=== PATIENT | male | born 2000 | race Caucasian/White ===

== ENCOUNTER 2021-06-30 11:24 | Emergency (ER) | payer OTHER, SELFPAY ==
--- NOTE | ~2021-06-30 | CT_ITS ---
EXAMINATION: CT brain wo con INDICATION: Head injury COMPARISON: None TECHNIQUE: Standard unenhanced head CT. The dose-length product (DLP) was 681.00 mGy-cm. The mA was a djusted according to patient size. Iterative reconstruction technique was employed. FINDINGS: There is no intracranial hemorrhage, acute infarction, or abnormal mass lesion. The ventric les are normal. There is no abnormal mass effect or midline shift. The bro-white matter differentiat ion is normal. The basal cisterns are patent. The orbits are normal. The paranasal sinuses, mastoids and calvarium are normal. IMPRESSION: 1. No acute intracranial abnormality. Reviewed, dictated and finalized at location A.
--- NOTE | ~2021-06-30 | CT_ITS ---
EXAMINATION: CT facial bones wo con DATE: 06/30/2021 12:07 INDICATION: Right facial injury TECHNIQUE: Computed tomography (CT) of the facial bones and maxillofacial region was performed withou t intravenous contrast. The dose-length product (DLP) was 281.08 mGy-cm. Automated exposure control a nd iterative reconstruction technique were employed. COMPARISON: None. FINDINGS: There is no facial bone fracture. There is mild right facial soft tissue swelling. Polyps o r mucous retention cysts are noted in the maxillary sinuses. IMPRESSION: 1. No facial bone fracture identified. Reviewed, dictated and finalized at location A.
[2021-06-30 11:26] VITALS: BP 158/88; PULSE 96; RESP 18; TEMP 36.3; O2SAT 98
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
== END 2021-06-30 12:39 | disposition home or self-care (01) ==
PROVIDERS: Emergency Provider Emergency Medicine; PCP Family Medicine
DX: S09.90XA Unspecified injury of head, initial encounter (principal); W51.XXXA Accidental striking against or bumped into by another person, initial encounter; Y93.83 Activity, rough housing and horseplay
CPT/HCPCS: 70450; 70486; 99284

== ENCOUNTER 2021-08-24 23:28 | Emergency (ER) | payer OTHER, SELFPAY ==
[2021-08-24 23:34] VITALS: BP 151/84; PULSE 107; RESP 20; TEMP 36.2; O2SAT 99
--- NOTE | 2021-08-25 00:01 | ED.GENADULT ---
HPI - General Adult General Chief complaint: Unspecified Stated complaint: Abscess on tailbone Time Seen by Provider: 08/24/21 23:38 History of Present Illness HPI narrative: Patient 20-year-old gentleman who presents the emergency department with chief complaint of pain in the tailbone area. Patient reports he does little bit of swelling in that area and noticed it was tender to palpation. Patient reports he was concerned that he had an abscess in the tailbone area. Patient reports has no history of diabetes denies fever denies chills denies purulent drainage from the area. Related Data Allergies Allergy/AdvReac Type Severity Reaction Status Date / Time Penicillins AdvReac Unknown Verified 08/24/21 23:47 Review of Systems Review of Systems: A 10 system review of systems was completed on the patient and is negative except for what is stated in the HPI. Nursing and ancillary documentation was reviewed. [facility] Past Medical History Medical History No active medical problems Social History Social History Substance use: never Exam Narrative: GENERAL: Well-appearing, well-nourished, and in no acute distress. HEAD: Normocephalic, atraumatic. EYES: PERRLA and EOMI. ENT: Nares clear, no rhinorrhea or epistaxis. Mucous membranes moist. NECK: Supple. CHEST: Clear to auscultation. No respiratory distress. HEART: Regular rate and rhythm. No murmur heard. Normal peripheral pulses. ABDOMEN: Soft, nontender, nondistended, normal active bowel sounds. : The gluteal fold there is a slight area of erythema there is no fluctuance there is no pointing there is no appreciable drainable abscess. EXTREMITIES: Normal range of motion. No edema. SKIN: Warm, dry, no rash. NEURO: No focal deficits. Alert and oriented x3. PSYCH: Normal mood and affect. Course Vital Signs Vital signs: Vital Signs Temperature 36.2 C L 08/24/21 23:34 Pulse Rate 107 H 08/24/21 23:34 Respiratory Rate 20 08/24/21 23:34 Blood Pressure 151/84 H 08/24/21 23:34 Pulse Oximetry 99 08/24/21 23:34 Temperature 36.2 C L 08/24/21 23:34 Pulse Rate 107 H 08/24/21 23:34 Respiratory Rate 20 08/24/21 23:34 Blood Pressure 151/84 H 08/24/21 23:34 Pulse Oximetry 99 08/24/21 23:34 Medical Decision Making Vital Signs Vital Signs: Vital Signs Temperature 36.2 C L 08/24/21 23:34 Pulse Rate 107 H 08/24/21 23:34 Respiratory Rate 20 08/24/21 23:34 Blood Pressure 151/84 H 08/24/21 23:34 Pulse Oximetry 99 08/24/21 23:34 Temperature 36.2 C L 08/24/21 23:34 Pulse Rate 107 H 08/24/21 23:34 Respiratory Rate 20 08/24/21 23:34 Blood Pressure 151/84 H 08/24/21 23:34 Pulse Oximetry 99 08/24/21 23:34 Discharge Plan Discharge Clinical Impression: Pilonidal cyst Patient Disposition: Home, Self-Care Condition: Stable Instructions: Antibiotic Form, Pilonidal Cyst (ED), Sitz Bath (DC) Prescriptions: New clindamycin HCl 300 mg capsule 300 mg PO Q6H 10 Days Qty: 40 RF: 0 Follow-up/Referrals: PHYSICIAN,RAIL CAR MECHANIC [Primary Care Provider] - Alistair Regalado MD [Physician] - Time of Disposition: 00:08
[2021-08-25 00:04] LABS: Glucose Point of Care 104 mg/dl (65-105)
[2021-08-25] MEDS: CLINDAMYCIN HCL 150 MG CAP 300 MG PO (00:17)
[2021-08-25 00:20] VITALS: BP 157/81; PULSE 91; RESP 18; O2SAT 95
== END 2021-08-25 00:25 | disposition home or self-care (01) ==
PROVIDERS: Emergency Provider Emergency Medicine
DX: L05.91 Pilonidal cyst without abscess (principal)
CPT/HCPCS: 82948; 99283; A9270

== ENCOUNTER 2021-11-29 16:15 | Emergency (ER) | payer OTHER, SELFPAY ==
[2021-11-29 16:18] VITALS: BP 152/70; PULSE 67; RESP 16; TEMP 36.8; O2SAT 100
--- NOTE | 2021-11-29 16:27 | PC.NURSE ---
Patient teeth look darker on left upper and lower. Patient states, It feels like a cavity but it hurts more in my gums
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
[2021-11-29] MEDS: CLINDAMYCIN HCL 150 MG CAP 300 MG PO (16:56)
[2021-11-29] MEDS: ACETAMINOPHEN/CODEINE (*CRX) 300/30 MG TABLET 1 TAB PO (16:56)
== END 2021-11-29 17:43 | disposition home or self-care (01) ==
LOC: ANHED 17:04
PROVIDERS: Emergency Provider Nurse Practitioner Adult Health
DX: K08.89 Other specified disorders of teeth and supporting structures (principal)
CPT/HCPCS: 99283; A9270

== ENCOUNTER 2022-01-04 21:28 | Emergency (ER) | payer OTHER, SELFPAY ==
--- NOTE | ~2022-01-04 | CT_ITS ---
EXAMINATION: CT brain wo con EXAM DATE: 01/04/2022 23:53 INDICATION: Seizure, resulting in fall. Head injury, laceration above left eyebrow. TECHNIQUE: Spiral CT of the head was performed without contrast. Axial, coronal and sagittal images were reviewed. The dose-length product (DLP) for this examination was 681.00 mGy-cm. The exposure w as tailored according to patient size, and iterative reconstruction (ASIR) was used as additional dos e reduction technique. Comparison is made to prior examination from 06/30/2020. FINDINGS: There is no acute intraparenchymal hemorrhage. No evidence of intraparenchymal brain mass lesion. No evidence of acute infarction. There is no mass effect or midline shift. The ventricles are normal in size. There are no extra-axial collections. There are no acute calvarial fractures. T he orbits are unremarkable. Soft tissue is unremarkable. The visualized sinuses and mastoid air vidal ls are well aerated. IMPRESSION: 1. Unremarkable head CT examination. Reviewed, dictated and finalized at location G.
[2022-01-04 21:38] VITALS: BP 123/71; PULSE 101; RESP 18; TEMP 36.6; O2SAT 99
--- NOTE | 2022-01-04 23:40 | ED.SEIZURE ---
HPI - Seizure General Chief Complaint: Seizure Stated Complaint: seizure Time Seen by Provider: 01/04/22 23:28 Source: patient Mode of arrival: EMS Limitations: no limitations History of Present Illness HPI Narrative: Patient is a 21-year-old male complaining of a seizure, single episode, lasted for approximately 10 seconds described as shaking all over but he was able to get up after and walk to the kitchen according to . Patient states that he had a similar episode 3 months ago when he smoked marijuana. Patient admits to smoking marijuana tonight. Patient denies any symptoms at this time. Denies any headache, dizziness, speech or visual disturbance, focal weakness or numbness, chest pain, shortness of breath, abdominal pain, nausea, vomiting, fever or chills. Related Data Allergies Allergy/AdvReac Type Severity Reaction Status Date / Time Penicillins AdvReac Unknown Verified 01/04/22 21:42 Review of Systems Review of Systems: All systems reviewed & are unremarkable except as noted in HPI and below Constitutional: Constitutional: Denies body ache(s), Denies chills, Denies excessive sweating, Denies fatigue, Denies fever(s), Denies headache(s), Denies lethargy, Denies malaise, Denies weakness and Denies weight loss Eyes: Eyes: Denies blurry vision, Denies change in vision and Denies loss of vision ENT: Denies dizziness, Denies ear discharge, Denies headache(s), Denies lip swelling, Denies epistaxis, Denies nasal congestion, Denies neck pain, Denies throat swelling and Denies tongue swelling Cardiovascular: Cardiovascular: Denies chest pain, Denies chest pain at rest, Denies chest pain with activity, Denies diaphoresis, Denies rapid heart rate, Denies edema, Denies irregular heart rhythm, Denies lightheadedness, Denies palpitations, Denies dyspnea and Denies dyspnea on exertion Respiratory: Respiratory: Denies chest congestion, Denies cough, Denies hemoptysis, Denies dyspnea and Denies dyspnea on exertion Gastrointestinal: Gastrointestinal: Denies abdominal pain, Denies melena, Denies hematochezia, Denies diarrhea, Denies nausea, Denies vomiting and Denies hematemesis Musculoskeletal: Musculoskeletal: Denies abnormal gait, Denies deformity, Denies joint swelling, Denies limited range of motion, Denies neck pain and Denies numbness Neurologic: Denies Abnormal speech present, Denies abnormal gait, Denies confusion, Denies dizziness, Denies headache(s), Denies focal weakness, Denies loss of vision, Denies numbness, Denies Other visual disturbances, Denies Sensory deficit (Neuro) and Denies weakness Psychiatric: Psychiatric: Denies confusion, Denies depression, Denies auditory hallucinations, Denies homicidal ideation and Denies suicidal ideation Endocrine: Endocrine: Denies cold intolerance, Denies excessive sweating, Denies fatigue, Denies heat intolerance and Denies palpitations Hematologic/Lymphatic: Hematologic/Lymphatic: Denies easy bleeding and Denies easy bruising Allergic/Immunologic: Allergic/Immunologic: Denies lip swelling, Denies throat swelling and Denies tongue swelling PMFSH Past Medical History Medical History No active medical problems Social History Social History Substance use: never Comments Social history: Positive for smoker, occasional EtOH use, positive for marijuana use Exam Const: General: cooperative, healthy appearing, comfortable, no acute distress, well developed, alert and awake; No confusion Orientation/consciousness: oriented to person, oriented to place, oriented to time, patient oriented x3 and No confusion Limitations: no limitations HENMT: Head: normal to inspection, normocephalic and atraumatic Ears: hearing grossly normal bilaterally, TM normal on the right and TM normal on the left General nose exam: Normal external nose present, Normal nares present and No nasal disc
[2022-01-05 00:16] LABS: Basophils Percent Auto 0.6 % (0.2-1.2); Eosinophils Absolute Auto 0.2 K/mm3 (0-0.3); Eosinophils Percent Auto 2.3 % (0-4.4); Hematocrit 43.9 % (42.0-52.0); Hemoglobin 14.7 g/dL (14.0-18.0); Immature Granulocyte Absolute 0.02 K/mm3 (0.00-0.031); Immature Granulocyte Percent A 0.3 % (0-0.5); Lymphocytes Absolute Auto 2.42 K/mm3 (0.9-3.2); Lymphocytes Percent Auto 34.2 % (18.3-44.2); Mean Corpuscular HGB Conc 33.5 g/dl (32-36); Mean Corpuscular Volume 89.6 fl (80-100); Mean Platelet Volume 10.6 fl (7.4-10.4); Monocytes Absolute Auto 0.7 K/mm3 (0.1-0.6); Monocytes Percent Auto 10.3 % (2.6-8.5); Neutrophils Absolute Auto 3.7 K/mm3 (1.3-6.7); Neutrophils Percent Auto 52.3 % (45.5-73.1); Platelet Count Result 265 k/mm3 (150-375); Red Cell Distribution Width 13.2 % (11.5-14.5); White Blood Count 7.1 K/mm3 (4.5-10.0)
--- NOTE | 2022-01-05 00:25 | ECG_ITS ---
Measurements Intervals Coram Rate: 67 P: 42 ND: 142 QRS: 73 QRSD: 102 T: 49 QT: 405 QTc: 428 Interpretive Statements SINUS RHYTHM NORMAL ECG NO PREVIOUS ECG AVAILABLE FOR COMPARISON Electronically Signed On 01-07-2022 7:37:06 CDT by Jorge Lawrence M.D.
[2022-01-05 00:28] LABS: Alanine Aminotransferase 38 U/L (4-50); Alkaline Phosphatase 85 U/L (38-126); Anion Gap 9 mmol/L (8-16); Aspartate Amino Transferase 41 U/L (17-59); Bilirubin,Total 0.4 mg/dL (0.2-1.3); Blood Urea Nitrogen 21 mg/dL (9-20); Calcium 9.3 mg/dL (8.4-10.2); Carbon Dioxide 30 mmol/L (22-30); Chloride 102 mmol/L (98-107); Estimated CRCL calculation 129 ml/min; Estimated Glomerular Filt Rate > 60; Glucose 97 mg/dL (65-110); Potassium 3.9 mmol/L (3.4-5.0); Sodium 141 mmol/L (137-145)
[2022-01-05 00:34] VITALS: BP 140/64; PULSE 78; RESP 20; O2SAT 96
[2022-01-05] MEDS: LACTATED RINGERS 1,000 ML 999 ML IV CONT (00:39)
[2022-01-05 00:48] LABS: Troponin I 0.048 ng/mL (0.000-0.034)
[2022-01-05 01:55] VITALS: BP 136/73; PULSE 81; RESP 18; O2SAT 98
[2022-01-05 02:26] LABS: Troponin I 0.047 ng/mL (0.000-0.034)
[2022-01-05 03:00] VITALS: BP 136/66; PULSE 67; RESP 16; O2SAT 97
== END 2022-01-05 03:02 | disposition home or self-care (01) ==
PROVIDERS: Emergency Provider Emergency Medicine
DX: R56.9 Unspecified convulsions (principal); R79.89 Other specified abnormal findings of blood chemistry
CPT/HCPCS: 36415; 70450; 80053; 84484; 85025; 93005; 96360; 96361; 99284; J7120

== ENCOUNTER 2022-10-27 01:28 | Emergency (ER) | payer OTHER, SELFPAY ==
[2022-10-27] VITALS (11 sets, daily range): BP systolic 117–152; BP diastolic 66–86; PULSE 85–106; RESP 14–19; TEMP 36.6; O2SAT 95–98
--- NOTE | ~2022-10-27 | CT_ITS ---
EXAMINATION: CT brain wo con, CT facial bones wo con DATE: 10/27/2022 02:26 INDICATION: Seizure presenting with ground-level fall resulting in facial injury with laceration abov e left eyebrow. TECHNIQUE: 1. Computed tomography (CT) of the head was performed without intravenous contrast. Sagittal and kiel nal reconstructions were obtained. The mA was adjusted according to patient size. Iterative reconstru ction technique was employed. The dose-length product was 605.33 mGy-cm. 2. CT of the facial bones and maxillofacial region was performed without intravenous contrast. Sagitt al and coronal reconstructions were obtained. Automated exposure control and iterative reconstruction technique were employed. The dose-length product was 638.93 mGy-cm. COMPARISON: Head CT dated 01/04/2022 FINDINGS: Head CT: No calvarial fracture. No acute intracranial hemorrhage, acute infarction or abnormal extra axial flu id collection. Ventricles are normal and symmetric. No mass/mass effect. Maxillofacial CT: Small left supraorbital scalp hematoma. No acute maxillofacial fractures. Unchanged mild rightward de viation of the nasal bones and mild leftward bowing of the nasal septum also which could be developme ntal or sequela of old trauma. Small left-sided spike along the nasal septum. Orbits are normal. Unch anged small mucous retention cysts at the left and right maxillary sinuses. Mastoid air cells and mid dle ear cavities are clear. IMPRESSION: 1. Normal brain. No acute intracranial process. 2. No acute calvarial or maxillofacial fractures. Reviewed, dictated and finalized at location A. [employer] MANAGER IMPRESSION: 1. Normal brain. No acute intracranial process. 2. No acute calvarial or maxillofacial fractures.
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
[2022-10-27] MEDS: oxyCODONE/ACETAMINOPHEN (*CRX) 5-325 MG TABLET 1 TABLET PO (01:55)
[2022-10-27] MEDS: TETANUS,DIPHTHERIA,AC PERTUSSIS ADULT (0.5 ML) BOOSTRIX IM (01:55)
== END 2022-10-27 04:18 | disposition home or self-care (01) ==
PROVIDERS: Emergency Provider Preventive Medicine Aerospace Medicine
DX: S00.03XA Contusion of scalp, initial encounter (principal); S05.12XA Contusion of eyeball and orbital tissues, left eye, initial encounter; S00.33XA Contusion of nose, initial encounter; Z23 Encounter for immunization; Y04.2XXA Assault by strike against or bumped into by another person, initial encounter
CPT/HCPCS: 70450; 70486; 90471; 90715; 99284; A9270

== ENCOUNTER 2023-02-19 11:38 | Emergency (ER) | payer OTHER, SELFPAY ==
--- NOTE | ~2023-02-19 | CT_ITS ---
CT of the Abdomen and Pelvis: Indication: Abdominal pain, hematochezia Technique: 2.5 mm axial scans were obtained through the abdomen and pelvis following intravenous adm inistration of 100 cc of Omnipaque 350. Dose reduction technique was used on this scan by utilizing a utomated exposure control and iterative reconstruction technique. The dose-length product (DLP) was 1 021.75 mGy-cm. Findings: Scans through the lung bases are unremarkable. The liver, spleen, pancreas, gallbladder, adrenals and kidneys are within normal limits. No evidence of aortic aneurysm. No bowel obstruction or bowel wall thickening. There is no evidence to suggest acute appendicitis. Sh otty right lower quadrant lymph nodes are present. Images through the pelvis were performed. Urinary bladder unremarkable. Prostate gland and seminal ve sicles are unremarkable. Impression: Shotty right lower quadrant lymph nodes raises the possibility of mesenteric adenitis. No other significant findings. Reviewed, dictated and finalized at [facility]. Impression: Shotty right lower quadrant lymph nodes raises the possibility of mesenteric ad enitis. No other significant findings.
[2023-02-19 11:41] VITALS: BP 135/71; PULSE 77; RESP 18; TEMP 37; O2SAT 100
[2023-02-19 11:59] LABS: Basophils Percent Auto 0.5 % (0.2-1.2); Eosinophils Percent Auto 0.5 % (0-4.4); Hematocrit 44.6 % (42.0-52.0); Hemoglobin 14.9 g/dL (14.0-18.0); Immature Granulocyte Absolute 0.02 K/mm3 (0.00-0.031); Immature Granulocyte Percent A 0.3 % (0-0.5); Lymphocytes Absolute Auto 1.59 K/mm3 (0.9-3.2); Lymphocytes Percent Auto 26.9 % (18.3-44.2); Mean Corpuscular HGB Conc 33.4 g/dl (32-36); Mean Corpuscular Hemoglobin 29.7 pg (26-34); Mean Platelet Volume 10.7 fl (7.4-10.4); Monocytes Absolute Auto 0.4 K/mm3 (0.1-0.6); Monocytes Percent Auto 6.6 % (2.6-8.5); Neutrophils Absolute Auto 3.9 K/mm3 (1.3-6.7); Neutrophils Percent Auto 65.2 % (45.5-73.1); Platelet Count Result 250 k/mm3 (150-375); Red Blood Count 5.01 M/mm3 (4.6-6.20); Red Cell Distribution Width 13.2 % (11.5-14.5); White Blood Count 5.9 K/mm3 (4.5-10.0)
[2023-02-19 12:00] LABS: Appearance Urine Clear (Clear); Bilirubin Urine Negative (Negative); Blood Urine Negative (Negative); Color Urine Yellow (Yellow); Glucose Urine UA Negative (Negative); Ketones Urine Negative (Negative); Leukocyte Esterase Ur Negative LEU/UL (Negative); Nitrate Urine Negative (Negative); Protein Urine Negative (Negative); Urobilinogen Urine 0.2 mg/dL (<2.0)
[2023-02-19 12:12] LABS: Add Urine Microscopic? NO
[2023-02-19 12:15] LABS: Alanine Aminotransferase 25 U/L (6-50); Albumin Level 4.9 g/dL (3.5-5.1); Alkaline Phosphatase 66 U/L (38-126); Anion Gap 7 mmol/L (8-16); Aspartate Amino Transferase 25 U/L (17-59); Bilirubin,Total 0.5 mg/dL (0.2-1.3); Blood Urea Nitrogen 16 mg/dL (9-20); Calcium 9.1 mg/dL (8.4-10.2); Carbon Dioxide 28 mmol/L (22-30); Chloride 105 mmol/L (98-107); Estimated CRCL calculation 145 ml/min; Estimated Glomerular Filt Rate > 60; Glucose 98 mg/dL (65-110); Lipase 383 U/L (23-300); Potassium 4.6 mmol/L (3.4-5.0); Sodium 140 mmol/L (137-145)
--- NOTE | 2023-02-19 12:40 | ED.ABDPAIN ---
HPI - Abdominal Pain General Chief Complaint: Abdominal Pain Stated Complaint: blood in stool, weight loss Time Seen by Provider: 02/19/23 12:07 History of Present Illness HPI narrative: Patient is a 22-year-old male presenting with rectal bleeding. Patient states that for the last several months he has had intermittent abdominal cramping. States that he alternates between diarrhea and constipation. States that he sometimes does have black stools which has been occurring for the last year. States that earlier today he had a large loose bowel movement with bright red blood. States that he feels nauseous but has not vomited. No fevers or chills, chest pain, shortness of breath, rashes, dysuria, hematuria. Related Data Allergies Allergy/AdvReac Type Severity Reaction Status Date / Time Penicillins AdvReac Unknown Verified 02/19/23 11:44 Review of Systems Review of Systems: All systems reviewed & are unremarkable except as noted in HPI and below PMFSH Past Medical History Medical History No active medical problems Social History Social History Substance use: never Exam Narrative: GENERAL: Well-appearing, well-nourished, and in no acute distress. HEAD: Normocephalic, atraumatic. EYES: PERRLA and EOMI. ENT: Nares clear, no rhinorrhea or epistaxis. Mucous membranes moist. NECK: Supple. CHEST: Clear to auscultation. No respiratory distress. HEART: Regular rate and rhythm. ABDOMEN: Soft, mild diffuse tenderness, no guarding or rebound EXTREMITIES: Normal range of motion. No edema. SKIN: Warm, dry, no rash. NEURO: No focal deficits. Alert and oriented x3. PSYCH: Normal mood and affect. Course Vital Signs Vital signs: Vital Signs Temperature 98.6 F 02/19/23 11:41 Pulse Rate 77 02/19/23 11:41 Respiratory Rate 18 02/19/23 11:41 Blood Pressure 135/71 02/19/23 11:41 Pulse Oximetry 100 02/19/23 11:41 Oxygen Delivery Room Air 02/19/23 11:41 Temperature 98.6 F 02/19/23 11:41 Pulse Rate 77 02/19/23 11:41 Respiratory Rate 18 02/19/23 11:41 Blood Pressure 135/71 02/19/23 11:41 Pulse Oximetry 100 02/19/23 11:41 Oxygen Delivery Room Air 02/19/23 11:41 MDM - Abdominal Pain MDM Narrative Medical decision making narrative: Patient is a 22-year-old male presenting with abdominal cramping and bloody diarrhea. Vitals within normal limits. Exam remarkable for the above. Blood work is unremarkable. Hemoglobin is stable. Inflammatory markers are unremarkable. UA is unremarkable. CT abdomen pelvis shows possibility of mesenteric adenitis but no other acute abnormalities. Appendix appears normal. Rectal exam reveals light brown stool that is guaiac negative. No obvious hemorrhoids or fissures. On reevaluation, the patient is sitting comfortably. He denies current complaints. He denies any further rectal bleeding. Feel the patient is safe for outpatient management. Possible he had a bout of gastroenteritis causing mesenteric adenitis. Advised that he follow-up closely with gastroenterology and primary care. We will provide numbers for both. Appropriate return precautions given. Patient voiced understanding and is agreeable with plan. Discharged in stable condition. Differential Diagnosis Differential diagnosis: Likely abdominal pain, acute appendicitis, constipation, diverticulitis, gastroenteritis and other Medical Records Attestation: I reviewed the patient's medical records. Lab Data Attestation: I reviewed the patient's lab results. 02/19/23 11:47 02/19/23 11:47 Labs: Lab Results 02/19/23 Range/Units 11:47 WBC 5.9 (4.5-10.0) K/mm3 RBC 5.01 (4.6-6.20) M/mm3 Hgb 14.9 (14.0-18.0) g/dL Hct 44.6 (42.0-52.0) % MCV 89.0 (80-100) fl MCH 29.7 (26-34) pg MCHC 33.4 (32-36) g/dl RDW 13.2 (11
[2023-02-19 13:17] LABS: CRP < 0.5 mg/dL (<1.0)
[2023-02-19 13:20] LABS: Erythrocyte Sedimentation Rate 1 mm/hr (0-20)
== END 2023-02-19 14:17 | disposition home or self-care (01) ==
PROVIDERS: Emergency Medicine; Emergency Provider Emergency Medicine
DX: K92.1 Melena (principal); R10.9 Unspecified abdominal pain; R93.5 Abnormal findings on diagnostic imaging of other abdominal regions, including retroperitoneum
CPT/HCPCS: 36415; 74177; 80053; 81003; 83690; 85025; 85652; 86140; 99284; Q9967

== ENCOUNTER 2024-05-25 08:50 | Emergency (ER) | payer SELFPAY ==
[2024-05-25 08:53] VITALS: BP 155/84; PULSE 72; RESP 18; TEMP 36.5; O2SAT 99
--- NOTE | 2024-05-25 09:00 | ED.GIBLEED ---
HPI - GI Bleed General Chief complaint: GI Bleed Stated complaint: GI bleed Time Seen by Provider: 05/25/24 09:00 Source: patient Mode of arrival: ambulatory History of Present Illness HPI Narrative: 23 YEARS OLD WHITE MALE CAME WITH INTERMITTENT RECTAL BLEED FOR THE LAST 3-4 DAYS, FRESH RED BRIGHT BLOOD, WITH BOWEL MOVEMENT, DENIES ANY ANAL PAIN OR DISCOMFORT. PATIENT HAD SIMILAR SYMPTOMS OVER 1 YEAR AGO WITHOUT SPECIFIC DIAGNOSIS NEVER BEEN TO A ACCOUNTANT. PATIENT DOES NOT TAKE MEDICATION HEALTHY OTHERWISE. DOES NOT SMOKE OR DRINK OR USE DRUGS. LAST RECTAL BLEED WAS LAST NIGHT. Related Data Home Medications Medication Instructions Recorded Confirmed No Home Medications 05/25/24 05/25/24 Allergies Allergy/AdvReac Type Severity Reaction Status Date / Time Penicillins AdvReac Unknown Verified 05/25/24 08:50 Review of Systems Review of Systems: All systems reviewed & are unremarkable except as noted in HPI and below PMFSH Past Medical History Medical History No active medical problems Social History Social History Substance use: never Exam Narrative: GENERAL APPEARANCE: WELL-DEVELOPED, WELL-NOURISHED SKIN: NORMAL COLOR HEAD: NORMOCEPHALIC, NONTRAUMATIC EYES: CLEAR CONJUNCTIVA ENT: OROPHARYNX NORMAL, EARS NORMAL, NOSE NORMAL NECK: SUPPLE, NONTENDER CHEST AND RESPIRATORY: AIRWAY PATENT, NO RESPIRATORY DISTRESS, NO ACCESSORY MUSCLE USE HEART: REGULAR RATE/RHYTHM ABDOMEN: SOFT, NONTENDER, NO ORGANOMEGALY, QUIET BOWEL SOUNDS, RECTAL EXAM SHOWED NO MASS, NO HEMORRHOIDS, NO TENDERNESS, GUAIAC NEGATIVE VASCULAR: NORMAL PERIPHERAL PULSES, NORMAL CAPILLARY REFILL. MUSCULOSKELETAL: NORMAL RANGE OF MOTION, NONTENDER BACK NEUROLOGIC: ALERT AND ORIENTED ?3, DOSIMETRIST IS NORMAL TESTED, NO GROSS MOTOR DEFICIT Course Vital Signs Vital signs: Vital Signs Temperature 36.5 C 05/25/24 08:53 Pulse Rate 72 05/25/24 08:53 Respiratory Rate 18 05/25/24 08:53 Blood Pressure 155/84 H 05/25/24 08:53 Pulse Oximetry 99 05/25/24 08:53 Oxygen Delivery Room Air 05/25/24 08:53 Temperature 36.5 C 05/25/24 08:53 Pulse Rate 72 08/13/24 08:53 Respiratory Rate 18 05/25/24 08:53 Blood Pressure 155/84 H 05/25/24 08:53 Pulse Oximetry 99 05/25/24 08:53 Oxygen Delivery Room Air 05/25/24 08:53 MDM - GI Bleed Lab Data 05/25/24 09:11 05/25/24 09:11 Labs: Lab Results 05/25/24 Range/Units 09:11 WBC 5.3 (4.5-10.0) K/mm3 RBC 4.93 (4.6-6.20) M/mm3 Hgb 14.8 (14.0-18.0) g/dL Hct 45.0 (42.0-52.0) % MCV 91.3 (80-100) fl MCH 30.0 (26-34) pg MCHC 32.9 (32-36) g/dl RDW 13.0 (11.5-14.5) % Plt Count 236 (150-375) k/mm3 MPV 10.5 H (7.4-10.4) fl Immature Gran % (Auto) 0.4 (0-0.5) % Neut % (Auto) 66.0 (45.5-73.1) % Lymph % (Auto) 23.4 (18.3-44.2) % Bill[place] % (Auto) 8.5 (2.6-8.5) % Eos % (Auto) 0.9 (0-4.4) % Baso % (Auto) 0.8 (0.2-1.2) % Lymph # (Auto) 1.24 (0.9-3.2) K/mm3 Bill[place] # (Auto) 0.5 (0.1-0.6) K/mm3 Eos # (Auto) 0.1 (0-0.3) K/mm3 Baso # (Auto) 0.0 (0.0-0.1) K/mm3 Abs Immat Gran (auto) 0.02 (0.00-0.031) K/mm3 Absolute Neuts (auto) 3.5 (1.3-6.7) K/mm3 Absolute Nucleated RBC 0.000 (0.0-0.012) K/mm3 Nucleated RBC % 0.0 (0.0-0.2) % PT 13.0 (11.1-14.7) Seconds INR 0.9 APTT 26.1 (22.3-36.8) Seconds Sodium 141 (137-145) mmol/L Potassium 4.0 (3.4-5.0) mmol/L Chloride 102 (98-107) mmol/L Carbon Dioxide 29 (22-30) mmol/L Anion Gap 10 (4-12) mmol/L BUN 20 (9-20) mg/dL Creatinine
[2024-05-25] MEDS: SODIUM CHLORIDE 0.9% IV 1,000 ML 999 ML IV CONT (09:26)
[2024-05-25 09:30] LABS: Basophils Percent Auto 0.8 % (0.2-1.2); Eosinophils Absolute Auto 0.1 K/mm3 (0-0.3); Eosinophils Percent Auto 0.9 % (0-4.4); Hemoglobin 14.8 g/dL (14.0-18.0); Immature Granulocyte Absolute 0.02 K/mm3 (0.00-0.031); Immature Granulocyte Percent A 0.4 % (0-0.5); Lymphocytes Absolute Auto 1.24 K/mm3 (0.9-3.2); Lymphocytes Percent Auto 23.4 % (18.3-44.2); Mean Corpuscular HGB Conc 32.9 g/dl (32-36); Mean Corpuscular Volume 91.3 fl (80-100); Mean Platelet Volume 10.5 fl (7.4-10.4); Monocytes Absolute Auto 0.5 K/mm3 (0.1-0.6); Monocytes Percent Auto 8.5 % (2.6-8.5); Neutrophils Absolute Auto 3.5 K/mm3 (1.3-6.7); Platelet Count Result 236 k/mm3 (150-375); Red Blood Count 4.93 M/mm3 (4.6-6.20); White Blood Count 5.3 K/mm3 (4.5-10.0)
[2024-05-25 09:42] LABS: INR 0.9
[2024-05-25 09:43] LABS: Partial Thromboplastin Time 26.1 Seconds (22.3-36.8)
[2024-05-25 09:49] LABS: Alanine Aminotransferase 20 U/L (6-50); Albumin Level 4.7 g/dL (3.5-5.1); Alkaline Phosphatase 59 U/L (38-126); Anion Gap 10 mmol/L (4-12); Aspartate Amino Transferase 22 U/L (17-59); Bilirubin,Total 0.3 mg/dL (0.2-1.3); Blood Urea Nitrogen 20 mg/dL (9-20); Calcium 9.1 mg/dL (8.4-10.2); Carbon Dioxide 29 mmol/L (22-30); Chloride 102 mmol/L (98-107); Estimated CRCL calculation 142 ml/min; Estimated Glomerular Filt Rate > 60; Glucose 104 mg/dL (65-110); Lipase 243 U/L (23-300); Sodium 141 mmol/L (137-145)
[2024-05-25 10:35] VITALS: BP 114/71; PULSE 63; RESP 19; O2SAT 100
== END 2024-05-25 10:36 | disposition home or self-care (01) ==
LOC: ANHED 09:45
PROVIDERS: Emergency Provider Emergency Medicine
DX: K62.5 Hemorrhage of anus and rectum (principal)
CPT/HCPCS: 36415; 80053; 83690; 85025; 85610; 85730; 86850; 86900; 86901; 96360; 99283; J7030

== ENCOUNTER 2024-08-30 22:29 | Emergency (ER) | payer SELFPAY ==
[2024-08-30 22:33] VITALS: BP 148/82; PULSE 100; RESP 18; TEMP 36.6; O2SAT 97
--- NOTE | 2024-08-30 23:22 | PC.NURSE ---
pt to intake desk, we are leaving, its too busy and hes in too much pain.
== END 2024-08-30 23:32 | disposition left against medical advice (07) ==
DX: R50.9 Fever, unspecified (principal)
CPT/HCPCS: 99199

== ENCOUNTER 2025-03-17 10:32 | Emergency (ER) | payer OTHER, MEDICAID, SELFPAY ==
--- NOTE | 2025-03-17 10:34 | ED_ITS ---
HPI - Back Pain/Injury General Chief Complaint: Back Pain/Injury Stated Complaint: back pain Time Seen by Provider: 03/17/25 10:57 Source: patient, RN notes reviewed and old records reviewed Mode of arrival: ambulatory Limitations: no limitations History of Present Illness HPI Narrative: 24-year-old male presents to the [facility] with left upper back pain that started approximately 10 days ago when he was lifting heavy objects. Pain is left upper back around the scapula, worse with movement. No midline tenderness. No loss of bowel or bladder. No numbness or tingling in extremities. Walks with a normal gait. Denies any direct trauma Reports that he has tried [id number] products Related Data Allergies Allergy/AdvReac Type Severity Reaction Status Date / Time Penicillins AdvReac Unknown Verified 03/17/25 10:48 Review of Systems 2 Review of Systems: All systems reviewed & are unremarkable except as noted in HPI and below Constitutional: Constitutional: Reports no additional constitutional complaints ENT: Reports system reviewed and no additional complaints, except as documented Cardiovascular: Cardiovascular: Reports no additional cardiovascular complaints, Denies chest pain and Denies dyspnea Respiratory: Respiratory: Reports no additional respiratory complaints, Denies chest congestion, Denies cough and Denies dyspnea Musculoskeletal: Musculoskeletal: Reports as per HPI and Reports back pain Integumentary/Breasts: Skin/Breast: Reports system reviewed and no additional complaints, except as docu PMFSH Past Medical History Medical History No active medical problems Social History Social History Substance use: never Comments At the time of my signature, I reviewed and agree with the nursing past medical, surgical, social, and family history. There is no relevant family history pertinent to the patient complaint. Exam 2 Const: General: cooperative, healthy appearing, comfortable, no acute distress, well developed, alert and well nourished Nutritional Appearance: w ell nourished and obese Orientation/consciousness: patient oriented x3 L imitations: no limitations HENMT: Head: normal to inspection Eyes: General: appearance normal, both eyes and all related structures A lignment and Position: alignment normal Neck: Neck: normal visual inspection, full ROM, no lymphadenopathy and no meningeal signs Chest: Chest palpation & inspection: normal inspection of the chest Resp: Effort & Inspection: normal respiratory effort and able to speak in complete sentences Auscultation: clear to auscultation bilaterally, no crackles, no rales, no rhonchi and no wheezes Cardio: Rate: regular rate GI: GI Palp: No abdominal tenderness Back/Spine/Pelvis: Back: no CVA tenderness, No erythema, No warmth, No sacral edema, No ecchymosis and back tenderness Thoracic/Lumbar Spine: paraspinal muscle tenderness on the left in the mid thoracic, No thoracic spinal tenderness and No lumbar spinal tenderness Pelvis: no pain with anterior-posterior compression and no pain with lateral compression Back/spine/pelvis image: 1. Reports tenderness to palpation. No erythema, ecchymosis, rash or swelling noted Skin: General skin exam: normal color and no rashes or lesions noted Neuro: General: patient oriented x3, gait normal, moves all extremities and no meningeal signs Cognition (Neuro): normal cognition Speech: normal speech Gait exam (Neuro): Normal gait present Extrem: General: normal to inspection, full ROM, capillary refill normal and normal gait Right upper extremity: normal to inspection and full ROM Left upper extremity: normal to inspection, full ROM and shoulder/upper arm inspection abnormal and normal ROM; no tenderness, no swelling, no abrasions, no lacerations, no ecchymosis and no penetrating wound Psych: Appearance: grossly normal and well kempt Mental Status: mental status grossly normal Speech and movement: Normal speech and movement present and Clear speech present Affect: normal affect Attitude: cooperative Course Course Level of Care: Express Care Visit Vital Signs Vital signs: Vital Signs Temperature 98.2 F 03/17/25 10:48 Pulse Rate 70 03/17/25 10:48 Respiratory Rate 16 03/17/25 10:48 Blood Pressure 123/75 03/17/25 10:48 Pulse Oximetry 100 03/17/25 10:48 Temperature 98.2 F 03/17/25 10:48 Pulse Rate 70 03/17/25 10:48 Respiratory Rate 16 03/17/25 10:48 Blood Pressure 123/75 03/17/25 10:48 Pulse Oximetry 100 03/17/25 10:48 Reviewed MDM - Back Pain/Injury MDM Narrative Medical decision making narrative: Patient sitting in exam room. Patient is nontoxic, vitals are stable. Patient presents with 10 day history of upper left back pain. Denies any chest pain, shortness of breath. Denies any nausea vomiting. Patient's pain is worse with movement, twisting, lifting of left arm. Reports pain worse with heavy lifting Patient had no direct trauma, x-ray is not indicated at this time Patient appropriate for outpatient treatment with close follow-up Discharge instructions reviewed with patient, as well as provided in writing per nursing staff. The instructions also include specific and strict return/GO TO THE ER as well as f/u information. All questions have been answered, and the patient deny any further questions with discharge and discharge plan. Some parts of this dictation were generated by voice recognition software and may contain typographical and/or grammatical inaccuracies. Differential Diagnosis Differential diagnosis: Likely lumbar radiculopathy, strain of lumbar region and thoracic back pain Critical Care Time Critical Care Time Critical Care Time: No Discharge Plan Discharge Clinical Impression: Back pain, Muscle strain Patient Disposition: Home Condition: Stable Instructions: Back Pain (ED), Thoracic Back Strain (ED) Additional Instructions: Take ibuprofen as directed to decrease inflammation and to help pain. Take Baclofen (muscle relaxer) as directed. Do not drink, drive, operate machinery, or do anything dangerous while taking this medication Exercise:Combine aerobic exercise, like walking or swimming, with specific exercises to keep the muscles in your back and abdomen strong and flexible. Proper Lifting:Be sure to lift heavy items with your legs, not your back. Do not bend over to pick something up. Keep your back straight and bend at your knees. Weight:Maintain a healthy weight. Being overweight puts added stress on your lower back. Avoid Smoking:Both the smoke and the nicotine cause your spine to age faster than normal. Proper Posture:Good posture is important for avoiding future problems. A therapist can teach you how to safely stand, sit, and lift. Use warm moist heat to help with pain. Using topical such as Biofreeze, Fred-Zabala or Aspercreme can also help Follow up with Primary provider in 2-3 days, This may become a chronic condition and they will be the one to help manage your pain and order additional testing. Go to the nearest ER if you develop problems with bladder/bowel function, weakness or loss of feeling in one or both of your legs. Patient Language: Yakut Prescriptions: New baclofen 10 mg tablet 10 mg PO TID PRN (Reason: muscle pain) Qty: 15 0RF lidocaine [Lidocan III] 5 % adhesive patch,medicated 1 patch topical DAILY Qty: 15 0RF Rx Instructions: leave on most painful area for up to 12 hrs ibuprofen 600 mg tablet 600 mg PO TID PRN (Reason: fever or pain) Qty: 30 0RF Follow-up/Referrals: PHYSICIAN,[facility] [employer] [Primary Care Provider] - Stand Alone Forms: Work/School Release IP Time of Disposition: 11:06
[2025-03-17 10:48] VITALS: BP 123/75; PULSE 70; RESP 16; TEMP 36.8; O2SAT 100
== END 2025-03-17 11:13 | disposition home or self-care (01) ==
PROVIDERS: Emergency Provider Nurse Practitioner
DX: S29.012A Strain of muscle and tendon of back wall of thorax, initial encounter (principal); X50.0XXA Overexertion from strenuous movement or load, initial encounter
CPT/HCPCS: 99213; G0463